=== PATIENT | female | born 1950 | race Caucasian/White ===

== ENCOUNTER 2016-08-31 08:13 | Day surgery (SDC) | payer BC, MEDICARE ==
[~2016-08-31 08:13] MED LIST: Midazolam 1 MG/ML 2 ML SDV ONE; Ondansetron 4 MG/2 ML SDV ONE; Propofol 200 MG/20 ML SDV ONE; Sodium Chloride 0.9% 10 ML Syringe FLUSH PRN; Sodium Chloride 0.9% 2.5 ML Syringe FLUSH PRN; fentaNYL 100 MCG/2 ML SDV ONE
--- NOTE | 2016-08-31 08:55 | PCM.PREANE ---
Preanesthetic Assessment - Anesthesia/Transfusion/Family Hx Anesthesia History: Prior Anesthesia Without Reaction Family History of Anesthesia Reaction: No Transfusion History: No Prior Transfusion(s) Intubation History: Unknown - Review of Systems General: No Symptoms Pulmonary: No Symptoms Cardiovascular: No Symptoms Gastrointestinal: No symptoms Neurological: No Symptoms Other: Reports: None - Physical Assessment Height: 1.69 m Weight: 84.368 kg ASA Class: 3 Mental Status: Alert & Oriented x3 Airway Class: Mallampati = 2 Dentition: Reports: Bostwick(s) (multiplr upper front) Thyro-Mental Finger Breadths: 3 Mouth Opening Finger Breadths: 2 ROM/Head Extension: Full Lungs: Clear to auscultation, Normal respiratory effort Cardiovascular: Regular Rate, Regular Rhythm, No Murmurs - Lab Values: Laboratory Last Values WBC 6.09 K/uL (4.0-11.0) 08/31/16 08:30 RBC 4.42 M/uL (4.30-5.90) 08/31/16 08:30 Hgb 12.8 g/dL (12.0-16.0) 08/31/16 08:30 Hct 39.5 % (36.0-46.0) 08/31/16 08:30 MCV 89.4 fL (80.0-98.0) 08/31/16 08:30 MCH 29.0 pg (27.0-32.0) 08/31/16 08:30 MCHC 32.4 g/dL (31.0-37.0) 08/31/16 08:30 RDW Std Deviation 43.8 fl (28.0-62.0) 08/31/16 08:30 RDW Coeff of Morro 13 % (11.0-15.0) 08/31/16 08:30 Plt Count 287 K/uL (150-400) 08/31/16 08:30 MPV 9.10 fL (7.40-12.00) 08/31/16 08:30 Nucleated RBC % 0.0 /100WBC 08/31/16 08:30 Nucleated RBCs # 0 K/uL 08/31/16 08:30 POC Glucose 136 mg/dL (60-110) H 08/31/16 08:39 - Allergies Allergies/Adverse Reactions: Allergies Allergy/AdvReac Type Severity Reaction Status Date / Time No Known Allergies Allergy Verified 05/24/14 09:30 - Blood Blood Available: No - Anesthesia Plan Pre-Op Medication Ordered: None - Acknowledgements Anesthesia Type Planned: General Anesthesia Pt an Appropriate Candidate for the Planned Anesthesia: Yes Alternatives and Risks of Anesthesia Discussed w Pt/Guardian: Yes Pt/Guardian Understands and Agrees with Anesthesia Plan: Yes PreAnesthesia Questionnaire HEENT History: Reports: None Cardiovascular History: Reports: High cholesterol Gastrointestinal History: Reports: None 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: Fibroids, Endocrine/Metabolic History: Reports: Diabetes, type II, Hypothyroidism, Osteopenia - Past Surgical History Head Surgeries/Procedures: Reports: None HEENT Surgical History: Reports: Tonsillectomy GI Surgical History: Reports: Cholecystectomy, Colonoscopy (x2) - SUBSTANCE USE Smoking Status *Q: Former Smoker Tobacco Use Within Last Twelve Months: No Days Per Week of Alcohol Use: 0 Number of Drinks Per Day: 0 Total Drinks Per Week: 0 Recreational Drug Use History: No - HOME MEDS Home Medications: Home Meds Calcium Carbonate/Vitamin D3 [Calcium 600 + Vit D 400] 1 tab PO DAILY 05/24/14 [ History] Cinnamon Bark [Cinnamon] 2 tab PO DAILY 05/24/14 [History] Levothyroxine Sodium [Synthroid] 125 mcg PO DAILY 05/24/14 [History] atorvaSTATin Calcium [Atorvastatin Calcium] 20 mg PO ASDIRECTED 05/24/14 [ History] metFORMIN HCl [Metformin HCl ER] 3 tab PO DAILY 05/24/14 [History] - CURRENT (IN HOUSE) MEDS Current Meds: Current Medications Sodium Chloride (Saline Flush) 10 ml FLUSH ASDIRECTED PRN PRN Reason: Keep Vein Open Sodium Chloride (Saline Flush) 2.5 ml FLUSH ASDIRECTED PRN PRN Reason: Keep Vein Open Discontinued Medications Fentanyl (Sublimaze) Confirm Administered Dose 100 mcg .ROUTE .STK-MED ONE Stop: 08/31/16 07:11 Midazolam HCl (Versed 1 Mg/Ml) Confirm Administered Dose 2 mg .ROUTE .STK-MED ONE Stop: 08/31/16 07:11 Ondansetron HCl (Zofran) Confirm Administered Dose 4 mg .ROUTE .STK-MED ONE Stop: 08/31/16 07:10 Propofol (Diprivan 20 Ml) Confirm Administered Dose 200 mg .ROUTE .STK-MED ONE Stop: 08/31/16 07:11
[2016-08-31] MEDS ORDERED: Lactated Ringers 1,000 ML IV SCH (09:00)
[2016-08-31] MEDS ORDERED: fentaNYL 100 MCG/2 ML SDV ONE (09:46)
[2016-08-31] MEDS ORDERED: Ketorolac 30 MG/ML SDV ONE (09:53)
--- NOTE | 2016-08-31 10:07 | PCM.OPNOTE ---
- General Post-Op/Procedure Note Date of Surgery/Procedure: 08/31/16 Operative Procedure(s): Operative hysteroscopy, polypectomy, curettage of endometrium Pre Op Diagnosis: Abnormal sonogram, endometrial polyp Post-Op Diagnosis: Same Anesthesia Technique: General LMA Primary Surgeon: Therese Dior Pathology: endometrial polyp and curretings Fluid Replacement, Intraop: 700 EBL in mLs: 15 Complications: None known Condition: Good Free Text/Narrative:: Dictation [id number]
--- NOTE | 2016-08-31 10:27 | PCM.POSTAN ---
POST ANESTHESIA ASSESSMENT - MENTAL STATUS Mental Status: alert, oriented - RESPIRATORY Respiratory Status: respiratory rate WNL, airway patent, O2 saturation stable - CARDIOVASCULAR CV Status: pulse rate WNL, blood pressure stable - GASTROINTESTINAL GI Status: no symptoms - PAIN Pain Score: 0 - POST OP HYDRATION Hydration Status: adequate & stable
--- NOTE | 2016-08-31 10:35 | PCM.PREANE ---
Preanesthetic Assessment - Anesthesia/Transfusion/Family Hx Anesthesia History: Prior Anesthesia Without Reaction Family History of Anesthesia Reaction: No Transfusion History: No Prior Transfusion(s) Intubation History: Unknown - Review of Systems Other: Reports: None - Physical Assessment NPO Status Date: 08/30/16 NPO Status Time: 23:00 O2 Sat by Pulse Oximetry: 92 Respiratory Rate: 12 Vital Signs: Last Vital Signs Temp 36.4 C 08/31/16 10:05 Pulse 88 08/31/16 10:31 Resp 12 08/31/16 10:31 BP 116/63 08/31/16 10:31 Pulse Ox 92 L 08/31/16 10:31 Height: 1.69 m Weight: 84.368 kg - Lab Values: Laboratory Last Values WBC 6.09 K/uL (4.0-11.0) 08/31/16 08:30 RBC 4.42 M/uL (4.30-5.90) 08/31/16 08:30 Hgb 12.8 g/dL (12.0-16.0) 08/31/16 08:30 Hct 39.5 % (36.0-46.0) 08/31/16 08:30 MCV 89.4 fL (80.0-98.0) 08/31/16 08:30 MCH 29.0 pg (27.0-32.0) 08/31/16 08:30 MCHC 32.4 g/dL (31.0-37.0) 08/31/16 08:30 RDW Std Deviation 43.8 fl (28.0-62.0) 08/31/16 08:30 RDW Coeff of Morro 13 % (11.0-15.0) 08/31/16 08:30 Plt Count 287 K/uL (150-400) 08/31/16 08:30 MPV 9.10 fL (7.40-12.00) 08/31/16 08:30 Nucleated RBC % 0.0 /100WBC 08/31/16 08:30 Nucleated RBCs # 0 K/uL 08/31/16 08:30 POC Glucose 136 mg/dL (60-110) H 08/31/16 08:39 - Allergies Allergies/Adverse Reactions: Allergies Allergy/AdvReac Type Severity Reaction Status Date / Time No Known Allergies Allergy Verified 05/24/14 09:30 - Blood Blood Available: No PreAnesthesia Questionnaire HEENT History: Reports: None Cardiovascular History: Reports: High cholesterol Gastrointestinal History: Reports: None 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: Fibroids, Endocrine/Metabolic History: Reports: Diabetes, type II, Hypothyroidism, Osteopenia - Past Surgical History Head Surgeries/Procedures: Reports: None HEENT Surgical History: Reports: Tonsillectomy GI Surgical History: Reports: Cholecystectomy, Colonoscopy (x2) - SUBSTANCE USE Smoking Status *Q: Former Smoker Tobacco Use Within Last Twelve Months: No Days Per Week of Alcohol Use: 0 Number of Drinks Per Day: 0 Total Drinks Per Week: 0 Recreational Drug Use History: No - HOME MEDS Home Medications: Home Meds Calcium Carbonate/Vitamin D3 [Calcium 600 + Vit D 400] 1 tab PO DAILY 05/24/14 [ History] Cinnamon Bark [Cinnamon] 2 tab PO DAILY 05/24/14 [History] Levothyroxine Sodium [Synthroid] 125 mcg PO DAILY 05/24/14 [History] atorvaSTATin Calcium [Atorvastatin Calcium] 20 mg PO ASDIRECTED 05/24/14 [ History] metFORMIN HCl [Metformin HCl ER] 3 tab PO DAILY 05/24/14 [History] - CURRENT (IN HOUSE) MEDS Current Meds: Current Medications Lactated Ringer's (Ringers, Lactated) 1,000 mls @ 125 mls/hr IV ASDIRECTED [facility] Last Admin: 08/31/16 08:50 Dose: 125 mls/hr Sodium Chloride (Saline Flush) 10 ml FLUSH ASDIRECTED PRN PRN Reason: Keep Vein Open Sodium Chloride (Saline Flush) 2.5 ml FLUSH ASDIRECTED PRN PRN Reason: Keep Vein Open Discontinued Medications Fentanyl (Sublimaze) Confirm Administered Dose 100 mcg .ROUTE .STK-MED ONE Stop: 08/31/16 07:11 Fentanyl (Sublimaze) Confirm Administered Dose 100 mcg .ROUTE .STK-MED ONE Stop: 08/31/16 09:47 Ketorolac Tromethamine (Toradol) Confirm Administered Dose 30 mg .ROUTE .STK- MED ONE Stop: 08/31/16 09:54 Midazolam HCl (Versed 1 Mg/Ml) Confirm Administered Dose 2 mg .ROUTE .STK-MED ONE Stop: 08/31/16 07:11 Ondansetron HCl (Zofran) Confirm Administered Dose 4 mg .ROUTE .STK-MED ONE Stop: 08/31/16 07:10 Propofol (Diprivan 20 Ml) Confirm Administered Dose 200 mg .ROUTE .STK-MED ONE Stop: 08/31/16 07:11
--- NOTE | 2016-08-31 11:18 | PCM48HPAN ---
Post Anesthesia Note - COMMENTS/OBSERVATIONS Free Text/Narrative:: no anesthesia problems
[2016-08-31 11:36] VITALS: BP 129/76
--- NOTE | 2016-08-31 19:55 | OR ---
SURGEON: Therese Dior M.D. DATE OF PROCEDURE: 08/31/2016 PREOPERATIVE DIAGNOSIS: Abnormal sonogram with endometrial polyp. POSTOPERATIVE DIAGNOSIS: Abnormal sonogram with endometrial polyp. PROCEDURE: Operative hysteroscopy, endometrial polypectomy, curettage of endometrium. ANESTHESIA: General and LMA. FLUIDS: 700 mL crystalloid. ESTIMATED BLOOD LOSS: 15 mL. FLUID DEFICIT: 230 mL normal saline. DISPOSITION: The patient to PACU, stable. PROCEDURE IN DETAIL: Juana is a 66-year-old postmenopausal female, who had an abnormal sonogram, which revealed a thickened endometrium. Sonohysterogram revealed a polypoid lesion with benign endometrial biopsy. At this time, the patient would like to undergo surgical resection of the polyp. Risks of procedure were discussed. Proper consent was obtained. The patient was taken to the operating room, where she underwent general LMA, was placed in modified dorsal lithotomy position, prepped and draped in the usual sterile fashion. The bladder was drained. Time-out was performed. Speculum was then introduced in the vagina. Anterior lip of cervix was grasped with an Allis clamp. Cervix was gently dilated to 5 mm. MyoSure scope was now introduced into the uterine cavity using normal saline as the distention media. The ostia were visualized. There was a midline fundal anterior polypoid lesion noted. Photograph taken. There were no other polyps or lesions noted within the lower uterine segment or endocervical canal. The MyoSure resectoscope was now gently introduced. The fundal polyp was able to be easily excised. The remainder of the endometrium was now gently shaved with the MyoSure device. All specimens sent to Pathology for further analysis. Photograph taken post resection. The MyoSure device was removed. The scope was then reintroduced. Hemostasis appears evident. Hysteroscope was now removed. The cervix was gently visualized and appears hemostatic. Sponge and instrument counts correct x2. The patient tolerated the procedure well. She will go to PACU in stable condition. Specimens to pathology. SRI / BLOSSOM /[id number]
== END 2016-08-31 11:34 | disposition home or self-care (01) ==
LOC: MW.SDS 08:13
PROVIDERS: ATTEND Obstetrics & Gynecology
PROC: 0UB98ZZ Excision of Uterus, Via Natural or Artificial Opening Endoscopic (ICD-10-PCS; principal; 2016-08-31)
PROC: 0UDB8ZZ Extraction of Endometrium, Via Natural or Artificial Opening Endoscopic (ICD-10-PCS; 2016-08-31)
DX: N84.0 Polyp of corpus uteri (principal); E03.9 Hypothyroidism, unspecified; E11.9 Type 2 diabetes mellitus without complications; E78.00 Pure hypercholesterolemia, unspecified; Z87.891 Personal history of nicotine dependence; Z90.49 Acquired absence of other specified parts of digestive tract; Z90.89 Acquired absence of other organs; Z98.890 Other specified postprocedural states; Z79.84 Long term (current) use of oral hypoglycemic drugs; Z79.899 Other long term (current) drug therapy
CPT/HCPCS: 36415; 58558; 82962; 85027; 88305; J1885; J2250; J2405; J3010; J7120; 00952; J2704

== ENCOUNTER 2020-06-21 07:24 | Day surgery (SDC) | payer BC, MEDICARE ==
[~2020-06-21 07:24] MED LIST changes: +Lactated Ringers 1,000 ML IV SCH; +Lidocaine 2% 5 ML SDV ONE; -Midazolam 1 MG/ML 2 ML SDV ONE; -Ondansetron 4 MG/2 ML SDV ONE; -Sodium Chloride 0.9% 10 ML Syringe FLUSH PRN; -Sodium Chloride 0.9% 2.5 ML Syringe FLUSH PRN; -fentaNYL 100 MCG/2 ML SDV ONE
--- NOTE | 2020-06-21 08:04 | PCM.PREANE ---
Preanesthetic Assessment - Anesthesia/Transfusion/Family Hx Anesthesia History: Prior Anesthesia Without Reaction Family History of Anesthesia Reaction: No Transfusion History: No Prior Transfusion(s) Intubation History: Unknown - Review of Systems General: No Symptoms Pulmonary: No Symptoms Cardiovascular: No Symptoms Gastrointestinal: No Symptoms Neurological: No Symptoms Other: Reports: None - Physical Assessment NPO Status Date: 06/20/20 Height: 5 ft 7 in Weight: 83.915 kg ASA Class: 2 Mental Status: Alert & Oriented x3 Airway Class: Mallampati = 2 Dentition: Reports: Normal Dentition ROM/Head Extension: Full Lungs: Clear to Auscultation, Normal Respiratory Effort Cardiovascular: Regular Rate, Regular Rhythm - Allergies Allergies/Adverse Reactions: Allergies Allergy/AdvReac Type Severity Reaction Status Date / Time No Known Allergies Allergy Verified 06/17/20 10:08 - Blood Blood Available: No - Anesthesia Plan Pre-Op Medication Ordered: None - Acknowledgements Anesthesia Type Planned: General Anesthesia (tiva) Pt an Appropriate Candidate for the Planned Anesthesia: Yes Alternatives and Risks of Anesthesia Discussed w Pt/Guardian: Yes Pt/Guardian Understands and Agrees with Anesthesia Plan: Yes PreAnesthesia Questionnaire HEENT History: Reports: Hard of Hearing Other HEENT History: alysia hearing aids ("probably won't wear them that day" Cardiovascular History: Reports: High Cholesterol Respiratory History: Reports: None Gastrointestinal History: Reports: None, Colon Polyp Genitourinary History: Reports: None 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: Fibroids, Musculoskeletal History: Reports: None Neurological History: Reports: None Psychiatric History: Reports: None Endocrine/Metabolic History: Reports: Diabetes, Type II, Hypothyroidism, Osteopenia Hematologic History: Reports: None Immunologic History: Reports: None Oncologic (Cancer) History: Reports: None Dermatologic History: Reports: None - Past Surgical History Head Surgeries/Procedures: Reports: None HEENT Surgical History: Reports: Tonsillectomy Cardiovascular Surgical History: Reports: None Respiratory Surgical History: Reports: None GI Surgical History: Reports: Cholecystectomy, Colonoscopy Female Surgical History: Reports: Other (See Below) Other Female Surgeries/Procedures: hysteroscopy & D&C Endocrine Surgical History: Reports: None Neurological Surgical History: Reports: None Musculoskeletal Surgical History: Reports: None Oncologic Surgical History: Reports: None Dermatological Surgical History: Reports: None - SUBSTANCE USE Tobacco Use Status *Q: Former Tobacco User Tobacco Use Within Last Twelve Months: No - HOME MEDS Home Medications: Home Meds Calcium Carbonate/Vitamin D3 [Calcium 600 + Vit D 400] 1 tab PO DAILY 05/24/14 [History] Cinnamon Bark [Cinnamon] 2 tab PO DAILY 05/24/14 [History] Levothyroxine Sodium [Synthroid] 125 mcg PO DAILY 05/24/14 [History] atorvaSTATin Calcium [Atorvastatin Calcium] 20 mg PO ASDIRECTED 05/24/14 [History] metFORMIN HCl [Metformin HCl ER] 4 tab PO ACDINNER 05/24/14 [History] lisinopriL [Lisinopril] 5 mg PO DAILY 06/17/20 [History] - CURRENT (IN HOUSE) MEDS Current Meds: Current Medications Lactated Ringer's (Ringers, Lactated) 1,000 mls @ 125 mls/hr IV ASDIRECTED TIM Discontinued Medications Lidocaine (Xylocaine-Mpf 2%) Confirm Administered Dose 5 ml .ROUTE .STK-MED ONE Stop: 06/21/20 07:24 Propofol (Diprivan 20 Ml) Confirm Administered Dose 400 mg .ROUTE .STK-MED ONE Stop: 06/21/20 07:24
--- NOTE | 2020-06-21 09:18 | PCM.OPNOTE ---
- General Post-Op/Procedure Note Date of Surgery/Procedure: 06/21/20 Operative Procedure(s): Colonoscopy Pre Op Diagnosis: Personal history of tubulovillous adenoma. History of diverticulosis. Post-Op Diagnosis: Mild sigmoid diverticulosis Anesthesia Technique: MAC (ASA II) Primary Surgeon: Guillermo Hess Wellness Consultant: Karol Dominguez Condition: Good Free Text/Narrative:: DICTATION [id number] CPT CODE [id number]
[2020-06-21] MEDS ORDERED: Lactated Ringers 1,000 ML IV SCH (09:30)
[2020-06-21 10:35] VITALS: BP 130/73; PULSE 70
--- NOTE | 2020-06-21 11:39 | OR ---
SURGEON: Guillermo Hess M.D. DATE OF PROCEDURE: 06/21/2020 OPERATION PERFORMED: Colonoscopy. PRIMARY SURGEON: Guillermo Hess M.D. [facility] OR DEPARTMENT CHIEF LIBRARIAN: SHON Meléndez Student. ANESTHESIA: MAC. ASA CLASSIFICATION: II. PREOPERATIVE DIAGNOSIS: Personal history of colon polyps. POSTOPERATIVE DIAGNOSES: 1. No evidence of neoplasia. 2. Mild sigmoid diverticulosis. DESCRIPTION OF PROCEDURE: The patient was taken to the endoscopy room, positioned on the endoscopy table in the left lateral decubitus position. Time-out was called for appropriate identification of the patient and procedure. Monitored anesthesia care was provided. The colonoscope was inserted into the rectum and advanced with minimal difficulty to the cecum. The cecum was identified by internal landmarks and external pressure. The colonoscope was retroflexed to visualize the ascending colon from below, then straightened, and slowly withdrawn. The cecum, ascending colon, hepatic flexure, transverse colon, splenic flexure, and descending colon showed no tumors, polyps, diverticula, or angiodysplastic changes. A few small scattered diverticula were noted in the sigmoid colon. No stricture, spasm, or bleeding was noted. No polyps were encountered. The colonoscope was withdrawn to the rectum and retroflexed to visualize the anal orifice from above. No tumors, polyps, or acute hemorrhoidal changes were noted. The colonoscope was then straightened, the rectum aspirated, and the colonoscope removed. The patient tolerated the procedure well and was taken to recovery room in stable condition. LIVE / BLOSSOM /[id number]
--- NOTE | 2020-06-21 12:12 | PCM.POSTAN ---
POST ANESTHESIA ASSESSMENT - MENTAL STATUS Mental Status: Alert, Oriented - VITAL SIGNS Vital Signs: Last Vital Signs Temp 95.9 F L 06/21/20 07:50 Pulse 70 06/21/20 09:30 Resp 16 06/21/20 09:30 BP 130/73 06/21/20 09:30 Pulse Ox 96 06/21/20 09:30 - RESPIRATORY Respiratory Status: Respiratory Rate WNL, Airway Patent, O2 Saturation Stable - CARDIOVASCULAR CV Status: Pulse Rate WNL, Blood Pressure Stable - GASTROINTESTINAL GI Status: No Symptoms - POST OP HYDRATION Hydration Status: Adequate & Stable
--- NOTE | 2020-06-21 12:14 | PCM48HPAN ---
Post Anesthesia Note - EVALUATION WITHIN 48HRS OF ANESTHETIC Vital Signs in Normal Range: Yes Patient Participated in Evaluation: Yes Respiratory Function Stable: Yes Airway Patent: Yes Cardiovascular Function Stable: Yes Hydration Status Stable: Yes Pain Control Satisfactory: Yes Nausea and Vomiting Control Satisfactory: Yes Mental Status Recovered: Yes Vital Signs: Last Vital Signs Temp 95.9 F L 06/21/20 07:50 Pulse 70 06/21/20 09:30 Resp 16 06/21/20 09:30 BP 130/73 06/21/20 09:30 Pulse Ox 96 06/21/20 09:30
== END 2020-06-21 10:00 | disposition home or self-care (01) ==
LOC: MW.SDS 07:24
PROVIDERS: ATTEND Surgery
DX: Z12.11 Encounter for screening for malignant neoplasm of colon (principal); K57.30 Diverticulosis of large intestine without perforation or abscess without bleeding; E03.9 Hypothyroidism, unspecified; E11.9 Type 2 diabetes mellitus without complications; Z79.84 Long term (current) use of oral hypoglycemic drugs; Z79.890 Hormone replacement therapy; Z79.899 Other long term (current) drug therapy; Z86.010 Personal history of colon polyps; Z87.891 Personal history of nicotine dependence; Z98.890 Other specified postprocedural states
CPT/HCPCS: 45378; J2704; J7120

== ENCOUNTER 2021-04-04 21:25 | Inpatient (IN) | payer MEDICARE, BC ==
[2021-04-04] MEDS ORDERED: Sodium Chloride 0.9% 2.5 ML Syringe FLUSH PRN (21:39)
[2021-04-04] MEDS ORDERED: Sodium Chloride 0.9% 10 ML Syringe FLUSH PRN (21:39)
--- NOTE | 2021-04-04 21:49 | EDM.PDOC ---
ED HPI GENERAL MEDICAL PROBLEM - General Chief Complaint: Respiratory Problem Stated Complaint: COVID POS, WEAKNESS Time Seen by Provider: 04/04/21 21:40 Source of Information: Reports: Patient History Limitations: Reports: No Limitations - History of Present Illness INITIAL COMMENTS - FREE TEXT/NARRATIVE: Patient is a 51-year-old female presents today for shortness of breath. Patient tested positive Covid a few days ago and she received antibiotic treatment today. To have a chronic cough nonproductive. She is satting 94% on room air. Denies any chest pain but did have a fever today which prompted her to come in. She still been tolerating p.o. at home has no other complaints. - Related Data Allergies Allergy/AdvReac Type Severity Reaction Status Date / Time No Known Allergies Allergy Verified 04/04/21 21:50 Home Meds: Home Meds Calcium Carbonate/Vitamin D3 [Calcium 600 + Vit D 400] 1 tab PO DAILY 05/24/14 [History] Cinnamon Bark [Cinnamon] 2 tab PO DAILY 05/24/14 [History] Levothyroxine Sodium [Synthroid] 125 mcg PO DAILY 05/24/14 [History] atorvaSTATin Calcium [Atorvastatin Calcium] 20 mg PO ASDIRECTED 05/24/14 [History] metFORMIN HCl [Metformin HCl ER] 4 tab PO ACDINNER 05/24/14 [History] lisinopriL [Lisinopril] 5 mg PO DAILY 06/17/20 [History] Past Medical History HEENT History: Reports: Hard of Hearing Other HEENT History: alysia hearing aids ("probably won't wear them that day" Cardiovascular History: Reports: High Cholesterol Respiratory History: Reports: None Gastrointestinal History: Reports: None, Colon Polyp Genitourinary History: Reports: None 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: Fibroids, Musculoskeletal History: Reports: None Neurological History: Reports: None Psychiatric History: Reports: None Endocrine/Metabolic History: Reports: Diabetes, Type II, Hypothyroidism, Osteopenia Hematologic History: Reports: None Immunologic History: Reports: None Oncologic (Cancer) History: Reports: None Dermatologic History: Reports: None - Past Surgical History Head Surgeries/Procedures: Reports: None HEENT Surgical History: Reports: Tonsillectomy Cardiovascular Surgical History: Reports: None Respiratory Surgical History: Reports: None GI Surgical History: Reports: Cholecystectomy, Colonoscopy Female Surgical History: Reports: Other (See Below) Other Female Surgeries/Procedures: hysteroscopy & D&C Endocrine Surgical History: Reports: None Neurological Surgical History: Reports: None Musculoskeletal Surgical History: Reports: None Oncologic Surgical History: Reports: None Dermatological Surgical History: Reports: None Social & Family History - Caffeine Use Caffeine Use: Reports: Coffee, Tea ED ROS GENERAL - Review of Systems Review Of Systems: See Below Constitutional: Reports: No Symptoms HEENT: Reports: No Symptoms Respiratory: Reports: Shortness of Breath, Cough Cardiovascular: Reports: No Symptoms Endocrine: Reports: No Symptoms GI/Abdominal: Reports: No Symptoms : Reports: No Symptoms Musculoskeletal: Reports: No Symptoms Skin: Reports: No Symptoms Neurological: Reports: No Symptoms Psychiatric: Reports: No Symptoms Hematologic/Lymphatic: Reports: No Symptoms Immunologic: Reports: No Symptoms ED EXAM, GENERAL - Physical Exam Exam: See Below Exam Limited By: No Limitations General Appearance: Alert, WD/WN, No Apparent Distress Eye Exam: Bilateral Eye: EOMI, PERRL Nose: Normal Inspection Throat/Mouth: Normal Inspection Head: Atraumatic, Normocephalic Neck: Normal Inspection Respiratory/Chest: No Respiratory Distress, Lungs Clear, Normal Breath Sounds Cardiovascular: Normal Peripheral Pulses, Regular Rate, Rhythm GI/Abdominal: Normal Bowel Sounds, Soft, Non-Tender Extremities: Normal Inspection, Normal Range of Motion Neurological: Alert, Oriented, Normal Cognition, Normal Gait #1 Interpretation EKG Date: 04/04/21 Time: 21:42 Rhythm: Other (sinus tachy) Rate (Beats/Min): 121 ST-T: Normal Course - Vital Signs Last Recorded V/S: Last Vital Signs Temp 99.7 F 04/04/21 22:07 Pulse 119 H 04/04/21 21:46 Resp 22 H 04/04/21 21:46 BP 156/85 H 04/04/21 21:46 Pulse Ox 93 L 04/04/21 21:46 - Orders/Labs/Meds Orders: Active Orders 24 hr Category Date Time Status Patient Status [ADT] Routine ADT 04/05/21 00:42 Ordered Sodium Chloride 0.9% [Saline Flush] Med 04/04/21 21:39 Active 10 ml FLUSH ASDIRECTED PRN Sodium Chloride 0.9% [Saline Flush] Med 04/04/21 21:39 Active 2.5 ml FLUSH ASDIRECTED PRN Saline Lock Insert [OM.PC] Stat Ot 04/04/21 21:39 Ordered Medication Orders Sodium Chloride (Sodium Chloride 0.9% 10 Ml Syringe) 10 ml FLUSH ASDIRECTED PRN PRN Reason: Keep Vein Open Last Admin: 04/04/21 22:08 Dose: 10 ml Documented by: LUCÍA Sodium Chloride (Sodium Chloride 0.9% 2.5 Ml Syringe) 2.5 ml FLUSH ASDIRECTED PRN PRN Reason: Keep Vein Open Last Admin: 04/04/21 22:08 Dose: 2.5 ml Documented by: LUCÍA Labs: Laboratory Tests 04/04/21 04/04/21 Range/Units 22:09 22:09 WBC 5.44 (4.0-11.0) K/uL RBC 4.51 (4.30-5.90) M/uL Hgb 13.2 (12.0-16.0) g/dL Hct 38.4 (36.0-46.0) % MCV 85.1 (80.0-98.0) fL MCH 29.3 (27.0-32.0) pg MCHC 34.4 (31.0-37.0) g/dL RDW Std Deviation 40.8 (28.0-62.0) fl RDW Coeff of [place]ro 13 (11.0-15.0) % Plt Count 210 (150-400) K/uL MPV 9.10 (7.40-12.00) fL Neut % (Auto) 83.9 H (48.0-80.0) % Lymph % (Auto) 11.9 L (16.0-40.0) % [place] % (Auto) 4.2 (0.0-15.0) % Eos % (Auto) 0.0 (0.0-7.0) % Baso % (Auto) 0.0 (0.0-1.5) % Neut # (Auto) 4.6 (1.4-5.7) K/uL Lymph # (Auto) 0.7 (0.6-2.4) K/uL [place] # (Auto) 0.2 (0.0-0.8) K/uL Eos # (Auto) 0.0 (0.0-0.7) K/uL Baso # (Auto) 0.0 (0.0-0.1) K/uL Nucleated RBC % 0.0 /100WBC Nucleated RBCs # 0 K/uL Sodium 128 L (136-145) mmol/L Potassium 4.0 (3.5-5.1) mmol/L Chloride 92 L (98-107) mmol/L Carbon Dioxide 25.7 (21.0-32.0) mmol/L BUN 13 (7.0-18.0) mg/dL Creatinine 1.0 (0.6-1.0) mg/dL Est Cr Clr Drug Dosing 52.81 mL/min Estimated GFR (MDRD) 54.8 ml/min Glucose 201 H (74-106) mg/dL Calcium 8.4 L (8.5-10.1) mg/dL Total Bilirubin 0.4 (0.2-1.0) mg/dL AST 31 (15-37) IU/L ALT 40 (14-63) IU/L Alkaline Phosphatase 79 (46-116) U/L Total Protein 7.5 (6.4-8.2) g/dL Albumin 3.4 (3.4-5.0) g/dL Globulin 4.1 H (2.6-4.0) g/dL Albumin/Globulin Ratio 0.8 L (0.9-1.6) Meds: Medications Generic Name Dose Route Start Last Admin Trade Name Cierra PRN Reason Stop Dose Admin Sodium Chloride 10 ml 04/04/21 21:39 04/04/21 22:08 Sodium Chloride 0.9% 10 Ml Syringe FLUSH 10 ml ASDIRECTED PRN Administration Keep Vein Open Sodium Chloride 2.5 ml 04/04/21 21:39 04/04/21 22:08 Sodium Chloride 0.9% 2.5 Ml Syringe FLUSH 2.5 ml ASDIRECTED PRN Administration Keep Vein Open Discontinued Medications Generic Name Dose Route Start Last Admin Trade Name Freq PRN Reason Stop Dose Admin Acetaminophen 650 mg 04/04/21 21:56 04/04/21 22:07 Acetaminophen 325 Mg Tab PO 04/04/21 21:57 650 mg NOW ONE Administration Dexamethasone 10 mg 04/05/21 00:41 Dexamethasone 10 Mg/Ml Sdv IVPUSH 04/05/21 00:42 ONETIME ONE Sodium Chloride 1,000 mls @ 1,000 mls/hr 04/04/21 21:56 04/04/21 22:08 Normal Saline IV 04/04/21 22:55 1,000 mls/hr .Bolus ONE Administration Remdesivir 200 mg/ Sodium 250 mls @ 250 mls/hr 04/05/21 00:41 Chloride IV 04/05/21 00:42 ONETIME ONE Iopamidol 100 ml 04/04/21 23:07 04/04/21 23:41 Iopamidol 755 Mg/Ml 500 Ml Multipack Bottle IVPUSH 04/04/21 23:08 100 ml ONETIME ONE Administration - Re-Assessments/Exams Free Text/Narrative Re-Assessment/Exam: 04/05/21 00:[address] PE is negative patient is hypoxic down to the 80s while lying down will admit patient for further care. Departure - Departure Time of Disposition: 00:43 Disposition: Home, Self-Care 01 Condition: Good Clinical Impression: Hypoxia, Tachycardia - Discharge Information *PRESCRIPTION DRUG MONITORING PROGRAM REVIEWED*: Not Applicable *COPY OF PRESCRIPTION DRUG MONITORING REPORT IN PATIENT FATOUMATA: Not Applicable Forms: ED Department Discharge Sepsis Event Note (ED) - Focused Exam Vital Signs: Vital Signs Temp Temp Pulse Resp BP Pulse Ox 04/04/21 22:07 99.7 F 04/04/21 21:46 99.7 F 119 H 22 H 156/85 H 93 L - My Orders Last 24 Hours: My Active Orders 04/05/21 00:42 Patient Status [ADT] Routine - Assessment/Plan Last 24 Hours: My Active Orders 04/05/21 00:42 Patient Status [ADT] Routine Plan: Patient is a 71-year-old female who presents today for increased shortness of breath. Patient tested positive for Covid and received antibiotic treatment today but states she still feels short of breath in spite of fever. Will obtain x-ray labs and reassess.
[2021-04-04] MEDS ORDERED: Sodium Chloride 0.9% 1,000 ML IV ONE (21:56)
[2021-04-04] MEDS ORDERED: Acetaminophen 325 MG Tab PO ONE (21:56)
--- NOTE | 2021-04-04 22:29 | CR ---
HISTORY: Pain and shortness of breath. COMPARISON: None available FINDINGS: A portable erect AP view of the chest was obtained at 21 39 hours. The lungs are clear. No focal or diffuse infiltrates are present. The heart is normal in size. The mediastinum is normal in appearance. The osseous structures are normal in appearance for the patient`s age. IMPRESSION: Normal portable chest single view. Dictated by Kirill Zamora MD @ 04/04/2021 10:26:24 PM (Electronically Signed)
[2021-04-04 22:43] LABS: CARBON DIOXIDE,CO2 25.7 mmol/L (21.0-32.0)
[2021-04-04] MEDS ORDERED: Iopamidol 755 MG/ML 500 ML Multipack Bottle IVPUSH ONE (23:07)
--- NOTE | 2021-04-05 00:17 | CT ---
Indication: Tachycardia. COVID. Hypoxia. Technique: Multiple contiguous axial images were obtained from the thoracic inlet through the upper abdomen after the intravenous administration of 100 cc Isovue 370. Please note that all CT scans at this facility use dose modulation, iterative reconstruction, and/or weight-based dosing when appropriate to reduce radiation dose to as low as reasonably achievable. Comparison: None Findings: This examination is tailored for the evaluation of the pulmonary arteries. The aorta is normal in caliber. There is no evidence of aortic dissection. Reactive mediastinal and hilar lymphadenopathy is identified. The heart is normal in size. No pericardial effusion is identified. A small hiatal hernia is identified. Diffuse fatty infiltration of the liver is identified. The visualized portions of the liver, spleen, pancreas, adrenals, and kidneys are normal. No intrahepatic biliary ductal dilatation is identified. No hydronephrosis is identified. Postsurgical changes of the cholecystectomy are identified. Moderate patchy bilateral ground-glass opacities are identified, greatest in the lower lobes. This is most consistent with COVID. No pleural effusion or pneumothorax is identified. Impression: Findings most consistent with COVID. No evidence of pulmonary embolism. Please note that all CT scans at this facility use dose modulation, iterative reconstruction, and/or weight-based dosing when appropriate to reduce radiation dose to as low as reasonably achievable. Dictated by Tonya Torrez MD @ 04/05/2021 12:15:19 AM (Electronically Signed)
[2021-04-05] MEDS ORDERED: Dexamethasone 10 MG/ML SDV IVPUSH ONE (00:41)
[2021-04-05] MEDS ORDERED: REMDESIVIR 200 MG in Sodium Chloride 0.9% 250 ML IV ONE (00:41)
[2021-04-05] MEDS ORDERED: Acetaminophen 325 MG Tab PO PRN (04:21)
[2021-04-05] MEDS ORDERED: Glucagon,Human Recombinant 1 MG Vial IM PRN (04:24)
[2021-04-05] MEDS ORDERED: 50% Dextrose in Water 50 ML Syringe IVPUSH PRN (04:24)
[2021-04-05] MEDS: Insulin Aspart 100 Units/ML 3 ML Pen SUBCUT SCH ×3 (08:08→17:02)
--- NOTE | 2021-04-05 13:07 | PCM.HP.2 ---
H&P History of Present Illness - General Date of Service: 04/05/21 Admit Problem/Dx: Admission Diagnosis/Problem Admission Diagnosis/Problem Hypoxia - History of Present Illness Initial Comments - Free Text/Narative: 71 yo female who presents to the ED with ten day history of cough, and shortness of breath. Patient tested positive for COVID on Wednesday. She received monoclonal antibodies yesterday. LAter that night she became increasingly short of breath and was seen in the ED. She was notted to be satting 80% on room air after her CT scan was perfromed. Her CT scan was negative for PE but did show ground glass opacities. - Related Data Allergies/Adverse Reactions: Allergies Allergy/AdvReac Type Severity Reaction Status Date / Time No Known Allergies Allergy Verified 04/05/21 03:48 Home Medications: Home Meds Calcium Carbonate/Vitamin D3 [Calcium 600 + Vit D 400] 1 tab PO DAILY 05/24/14 [History] Cinnamon Bark [Cinnamon] 2 tab PO DAILY 05/24/14 [History] Levothyroxine Sodium [Synthroid] 125 mcg PO DAILY 05/24/14 [History] metFORMIN HCl [Metformin HCl ER] 4 tab PO ACDINNER 05/24/14 [History] lisinopriL [Lisinopril] 5 mg PO DAILY 06/17/20 [History] Past Medical History HEENT History: Reports: Hard of Hearing Other HEENT History: alysia hearing aids ("probably won't wear them that day" Cardiovascular History: Reports: High Cholesterol Respiratory History: Reports: None Gastrointestinal History: Reports: None, Colon Polyp Genitourinary History: Reports: None 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, Musculoskeletal History: Reports: None Neurological History: Reports: None Psychiatric History: Reports: None Endocrine/Metabolic History: Reports: Diabetes, Type II, Hypothyroidism, Osteopenia Hematologic History: Reports: None Immunologic History: Reports: None Oncologic (Cancer) History: Reports: None Dermatologic History: Reports: None - Infectious Disease History Infectious Disease History: Reports: Shingles - Past Surgical History Head Surgeries/Procedures: Reports: None HEENT Surgical History: Reports: Tonsillectomy Cardiovascular Surgical History: Reports: None Respiratory Surgical History: Reports: None GI Surgical History: Reports: Cholecystectomy, Colonoscopy Female Surgical History: Reports: Other (See Below) Other Female Surgeries/Procedures: hysteroscopy & D&C Endocrine Surgical History: Reports: None Neurological Surgical History: Reports: None Musculoskeletal Surgical History: Reports: None Oncologic Surgical History: Reports: None Dermatological Surgical History: Reports: None Social & Family History - Family History Cardiac: Reports: CAD, Heart Failure, Hypertension, PR Respiratory: Reports: Asthma : Reports: None OBGYN: Reports: None Musculoskeletal: Reports: None Neurological: Reports: None Hematologic: Reports: None Oncologic: Reports: None - Tobacco Use Tobacco Use Status *Q: Never Tobacco User Second Hand Smoke Exposure: No - Caffeine Use Caffeine Use: Reports: Coffee - Recreational Drug Use Recreational Drug Use: No H&P Review of Systems - Review of Systems: Review Of Systems: Comprehensive ROS is negative, except as noted in HPI. Exam - Exam Exam: See Below - Vital Signs Vital Signs: Last Vital Signs Temp 36.3 C 04/05/21 11:34 Pulse 91 04/05/21 11:34 Resp 18 04/05/21 11:34 BP 143/75 H 04/05/21 11:34 Pulse Ox 91 L 04/05/21 11:34 Weight: 76.158 kg - Exam General: Alert, Oriented HEENT: Mucosa Moist & Rex Lungs: Clear to Auscultation, Normal Respiratory Effort Cardiovascular: Regular Rate, Regular Rhythm GI/Abdominal Exam: Normal Bowel Sounds, Soft, Non-Tender Extremities: Non-Tender, No Pedal Edema Skin: Warm, Dry, Intact - Patient Data Lab Results Last 24 hrs: Laboratory Results - last 24 hr 04/04/21 04/04/21 04/05/21 Range/Units 22:09 22:09 00:51 WBC 5.44 (4.0-11.0) K/uL RBC 4.51 (4.30-5.90) M/uL Hgb 13.2 (12.0-16.0) g/dL Hct 38.4 (36.0-46.0) % MCV 85.1 (80.0-98.0) fL MCH 29.3 (27.0-32.0) pg MCHC 34.4 (31.0-37.0) g/dL RDW Std Deviation 40.8 (28.0-62.0) fl RDW Coeff of Morro 13 (11.0-15.0) % Plt Count 210 (150-400) K/uL MPV 9.10 (7.40-12.00) fL Neut % (Auto) 83.9 H (48.0-80.0) % Lymph % (Auto) 11.9 L (16.0-40.0) % [place] % (Auto) 4.2 (0.0-15.0) % Eos % (Auto) 0.0 (0.0-7.0) % Baso % (Auto) 0.0 (0.0-1.5) % Neut # (Auto) 4.6 (1.4-5.7) K/uL Lymph # (Auto) 0.7 (0.6-2.4) K/uL [place] # (Auto) 0.2 (0.0-0.8) K/uL Eos # (Auto) 0.0 (0.0-0.7) K/uL Baso # (Auto) 0.0 (0.0-0.1) K/uL Nucleated RBC % 0.0 /100WBC Nucleated RBCs # 0 K/uL Sodium 128 L (136-145) mmol/L Potassium 4.0 (3.5-5.1) mmol/L Chloride 92 L (98-107) mmol/L Carbon Dioxide 25.7 (21.0-32.0) mmol/L BUN 13 (7.0-18.0) mg/dL Creatinine 1.0 (0.6-1.0) mg/dL Est Cr Clr Drug Dosing 52.81 mL/min Estimated GFR (MDRD) 54.8 ml/min Glucose 201 H (74-106) mg/dL POC Glucose (70-99) mg/dL Calcium 8.4 L (8.5-10.1) mg/dL Total Bilirubin 0.4 (0.2-1.0) mg/dL AST 31 (15-37) IU/L ALT 40 (14-63) IU/L Alkaline Phosphatase 79 (46-116) U/L Total Protein 7.5 (6.4-8.2) g/dL Albumin 3.4 (3.4-5.0) g/dL Globulin 4.1 H (2.6-4.0) g/dL Albumin/Globulin Ratio 0.8 L (0.9-1.6) SARS-CoV-2 RNA (GILMA) POSITIVE H (NEGATIVE) 04/05/21 04/05/21 04/05/21 Range/Units 03:43 06:52 11:30 WBC (4.0-11.0) K/uL RBC (4.30-5.90) M/uL Hgb (12.0-16.0) g/dL Hct (36.0-46.0) % MCV (80.0-98.0) fL MCH (27.0-32.0) pg MCHC (31.0-37.0) g/dL RDW Std Deviation (28.0-62.0) fl RDW Coeff of [place]ro (11.0-15.0) % Plt Count (150-400) K/uL MPV (7.40-12.00) fL Neut % (Auto) (48.0-80.0) % Lymph % (Auto) (16.0-40.0) % [place] % (Auto) (0.0-15.0) % Eos % (Auto) (0.0-7.0) % Baso % (Auto) (0.0-1.5) % Neut # (Auto) (1.4-5.7) K/uL Lymph # (Auto) (0.6-2.4) K/uL [place] # (Auto) (0.0-0.8) K/uL Eos # (Auto) (0.0-0.7) K/uL Baso # (Auto) (0.0-0.1) K/uL Nucleated RBC % /100WBC Nucleated RBCs # K/uL Sodium (136-145) mmol/L Potassium (3.5-5.1) mmol/L Chloride (98-107) mmol/L Carbon Dioxide (21.0-32.0) mmol/L BUN (7.0-18.0) mg/dL Creatinine (0.6-1.0) mg/dL Est Cr Clr Drug Dosing mL/min Estimated GFR (MDRD) ml/min Glucose (74-106) mg/dL POC Glucose 279 H 339 H 253 H (70-99) mg/dL Calcium (8.5-10.1) mg/dL Total Bilirubin (0.2-1.0) mg/dL AST (15-37) IU/L ALT (14-63) IU/L Alkaline Phosphatase (46-116) U/L Total Protein (6.4-8.2) g/dL Albumin (3.4-5.0) g/dL Globulin (2.6-4.0) g/dL Albumin/Globulin Ratio (0.9-1.6) SARS-CoV-2 RNA (GILMA) (NEGATIVE) Result Diagrams: 04/04/21 22:09 04/04/21 22:09 Sepsis Event Note - Evaluation Sepsis Screening Result: No Definite Risk - Focused Exam Vital Signs: Vital Signs Temp Pulse Resp BP BP Pulse Ox 04/05/21 11:34 36.3 C 91 18 143/75 H 91 L 04/05/21 08:04 36.2 C 89 16 117/64 93 L 04/05/21 04:00 36.5 C 96 18 133/68 93 L 04/05/21 03:00 36.5 C 95 18 133/64 92 L 04/05/21 02:00 36.5 C 95 18 133/64 92 L - Problem List (1) COVID-19 SNOMED Code(s): 860121093 ICD Code: U07.1 - COVID-19 Status: Acute Current Visit: Yes Problem List Initiated/Reviewed/Updated: Yes Orders Last 24hrs: Active Orders 24 hr Category Date Time Status Patient Status [ADT] Routine ADT 04/05/21 00:42 Active Antiembolic Devices [RC] PER UNIT ROUTINE Care 04/05/21 12:57 Ordered Oxygen Therapy [RC] PRN Care 04/05/21 12:56 Ordered RT Post Treatment Assessment [RC] Click to Edit Care 04/05/21 13:00 Ordered RT Pre-Treatment Assessment [RC] Click to Edit Care 04/05/21 13:00 Ordered Telemetry Monitoring [Cardiac Monitoring] [RC] Q8H Care 04/05/21 02:43 Active Up ad Yasmin [RC] ASDIRECTED Care 04/05/21 12:56 Ordered VTE/DVT Education [RC] PER UNIT ROUTINE Care 04/05/21 12:56 Ordered Vital Signs [RC] Q4H Care 04/05/21 12:56 Ordered [place] [employer] Diet [DIET] Diet 04/05/21 Breakfast Active CBC WITH AUTO DIFF [HEME] AM Lab 04/06/21 05:11 Ordered CBC WITH AUTO DIFF [HEME] AM Lab 04/07/21 05:11 Ordered CBC WITH AUTO DIFF [HEME] AM Lab 04/08/21 05:11 Ordered CBC WITH AUTO DIFF [HEME] AM Lab 04/09/21 05:11 Ordered COMPREHENSIVE METABOLIC PN,CMP [CHEM] AM Lab 04/06/21 05:11 Ordered COMPREHENSIVE METABOLIC PN,CMP [CHEM] AM Lab 04/07/21 05:11 Ordered COMPREHENSIVE METABOLIC PN,CMP [CHEM] AM Lab 04/08/21 05:11 Ordered COMPREHENSIVE METABOLIC PN,CMP [CHEM] AM Lab 04/09/21 05:11 Ordered Acetaminophen [TylenoL] Med 04/05/21 04:21 Active 650 mg PO Q6H PRN Albuterol/Ipratropium [Combivent Respimat] Med 04/05/21 12:57 Ordered 1 gm INH Q4H PRN Benzonatate [Tessalon Perles] Med 04/05/21 12:57 Ordered 100 mg PO Q6H PRN Dextrose 50% in Water Med 04/05/21 04:24 Active 50 ml IVPUSH ASDIRECTED PRN Enoxaparin [Lovenox] Med 04/05/21 13:00 Ordered 40 mg SUBCUT Q24H Glucagon,Human Recombinant [GlucaGen] Med 04/05/21 04:24 Active 1 mg IM ASDIRECTED PRN Insulin Aspart [NovoLOG] Med 04/05/21 07:30 Active See Protocol SUBCUT TIDAC Levothyroxine Med 04/05/21 13:00 Ordered 125 mcg PO DAILY Remdesivir 100 mg Med 04/06/21 01:00 Ordered Sodium Chloride 0.9% [Normal Saline AdvBag] 100 ml IV Q24H Sodium Chloride 0.9% [Saline Flush] Med 04/04/21 21:39 Active 10 ml FLUSH ASDIRECTED PRN Sodium Chloride 0.9% [Saline Flush] Med 04/04/21 21:39 Active 2.5 ml FLUSH ASDIRECTED PRN dexAMETHasone Med 04/06/21 01:00 Ordered 6 mg PO Q24H lisinopriL [Prinivil] Med 04/06/21 09:00 Ordered 5 mg PO DAILY Saline Lock Insert [OM.PC] Stat Oth 04/04/21 21:39 Ordered Sequential Compression Device [OM.PC] Per Unit Routine Oth 04/05/21 12:56 Ordered Resuscitation Status Routine Resus Stat 04/05/21 12:56 Ordered Medication Orders Acetaminophen (Acetaminophen 325 Mg Tab) 650 mg PO Q6H PRN PRN Reason: Pain Albuterol/Ipratropium (Albuterol/Ipratropium 4 Gm Inhalation [place]) 1 gm INH Q4H PRN PRN Reason: Dyspnea Benzonatate (Benzonatate 100 Mg Cap) 100 mg PO Q6H PRN PRN Reason: Cough Dexamethasone (Dexamethasone 4 Mg Tab) 6 mg PO Q24H TIM Dextrose/Water (50% Dextrose In Water 50 Ml Syringe) 50 ml IVPUSH ASDIRECTED PRN PRN Reason: Hypoglycemia Enoxaparin Sodium (Enoxaparin 40 Mg/0.4 Ml Syringe) 40 mg SUBCUT Q24H TIM Glucagon (Glucagon,Human Recombinant 1 Mg Vial) 1 mg IM ASDIRECTED PRN PRN Reason: Hypoglycemia Remdesivir 100 mg/ Sodium (Chloride) 100 mls @ 100 mls/hr IV Q24H [facility] Stop: 04/09/21 01:59 Insulin Aspart (Insulin Aspart 100 Units/Ml 3 Ml Pen) 0 unit SUBCUT TIDAC [facility]; Protocol Last Admin: 04/05/21 11:35 Dose: 3 units Documented by: Admin: 04/05/21 08:08 Dose: 4 units Documented by: SOFIA Levothyroxine Sodium (Levothyroxine 125 Mcg Tab) 125 mcg PO ACBREAKFAST [facility] Lisinopril (Lisinopril 5 Mg Tab) 5 mg PO DAILY [facility] Sodium Chloride (Sodium Chloride 0.9% 10 Ml Syringe) 10 ml FLUSH ASDIRECTED PRN PRN Reason: Keep Vein Open Last Admin: 04/04/21 22:08 Dose: 10 ml Documented by: LUCÍA Sodium Chloride (Sodium Chloride 0.9% 2.5 Ml Syringe) 2.5 ml FLUSH ASDIRECTED PRN PRN Reason: Keep Vein Open Last Admin: 04/04/21 22:08 Dose: 2.5 ml Documented by: LUCÍA Assessment/Plan Comment:: 71 yo female admitted with COVID with hypoxia Treating with dexamethasone and remdesivir DM: on ssi and diabetic diet. Lovenox for DVT prophylaxis.
[2021-04-05] MEDS: Albuterol/Ipratropium 4 GM Inhalation Spray INH PRN ×2 (13:51→20:43)
[2021-04-05] MEDS: Enoxaparin 40 MG/0.4 ML Syringe SUBCUT SCH (13:51)
[2021-04-05] MEDS: Levothyroxine 125 MCG Tab PO SCH (13:51)
[2021-04-05] MEDS: Benzonatate 100 MG Cap PO PRN ×2 (13:51→20:43)
[2021-04-06] MEDS ORDERED: Dexamethasone 4 MG Tab PO SCH (01:00)
[2021-04-06] MEDS ORDERED: REMDESIVIR 100 MG in Sodium Chloride 0.9% 100 ML IV SCH (01:00)
[2021-04-06] MEDS: Benzonatate 100 MG Cap PO PRN ×2 (01:39→08:07)
[2021-04-06] MEDS: Levothyroxine 125 MCG Tab PO SCH (08:07)
[2021-04-06] MEDS: Insulin Aspart 100 Units/ML 3 ML Pen SUBCUT SCH ×2 (08:08→12:03)
[2021-04-06] MEDS: Albuterol/Ipratropium 4 GM Inhalation Spray INH PRN (08:08)
[2021-04-06] MEDS ORDERED: Lisinopril 5 MG Tab PO SCH (09:00)
[2021-04-06 10:08] LABS: POTASSIUM,K 4.2 mmol/L (3.5-5.1)
[2021-04-06 11:44] VITALS: BP 146/69; PULSE 78
[2021-04-06] MEDS: Enoxaparin 40 MG/0.4 ML Syringe SUBCUT SCH (12:04)
--- NOTE | 2021-04-06 13:38 | PCM.DCSUM1 ---
Discharge Summary - Discharge Data Discharge Date: 04/06/21 Discharge Disposition: Home, Self-Care 01 Condition: Good - Referral to Home Health Primary Care Physician: PCP None - Discharge Diagnosis/Problem(s) (1) COVID-19 SNOMED Code(s): 052711839 ICD Code: U07.1 - COVID-19 Status: Acute Current Visit: Yes - Patient Summary/Data Hospital Course: 71 yo female who presents to the ED with ten day history of cough, and shortness of breath. Patient tested positive for COVID on Wednesday. She received monoclonal antibodies the day of admission. LAter that night she became increasingly short of breath and was seen in the ED. She was noted to be sating 80% on room air after her CT scan was performed. Her CT scan was negative for PE but did show ground glass opacities. She was treated with remdesivir and dexamethasone and admitted to the hospital. She was monitored for another night and has been weened of supplemental oxygen. She is discharged home to have follow up with her primary care provider. - Patient Instructions Diet: Regular Diet as Tolerated Activity: As Tolerated Notify Provider of: Fever, Increased Pain, Nausea and/or Vomiting - Discharge Plan *PRESCRIPTION DRUG MONITORING PROGRAM REVIEWED*: Not Applicable *COPY OF PRESCRIPTION DRUG MONITORING REPORT IN PATIENT FTAOUMATA: Not Applicable Home Medications: Home Meds Calcium Carbonate/Vitamin D3 [Calcium 600 + Vit D 400] 1 tab PO DAILY 05/24/14 [History] Cinnamon Bark [Cinnamon] 2 tab PO DAILY 05/24/14 [History] Levothyroxine Sodium [Synthroid] 125 mcg PO DAILY 05/24/14 [History] metFORMIN HCl [Metformin HCl ER] 4 tab PO ACDINNER 05/24/14 [History] lisinopriL [Lisinopril] 5 mg PO DAILY 06/17/20 [History] Patient Handouts: How to Protect Yourself and Others - [facility] (12/06/2020), 10 Things You Can Do to Manage Your COVID-19 Symptoms at Home - [facility] (11/08/2020), Frequently Asked Questions About COVID-19 Vaccination - [facility] (12/27/2020), COVID- 19: Quarantine vs. Isolation - [facility] (04/11/2020) Referrals: PCP,None [Primary Care Provider] - - Discharge Summary/Plan Comment DC Time >30 min.: No Total # of Minutes for Discharge Time: 15 - Patient Data Vitals - Most Recent: Last Vital Signs Temp 35.6 C L 04/06/21 11:42 Pulse 78 04/06/21 11:42 Resp 18 04/06/21 11:42 BP 146/69 H 04/06/21 11:42 Pulse Ox 96 04/06/21 11:42 Weight - Most Recent: 76.158 kg I&O - Last 24 hours: Intake & Output 04/05/21 04/06/21 04/06/21 22:59 06:59 14:59 Intake Total 1000 800 Output Total 850 600 Balance 150 200 Lab Results - Last 24 hrs: Laboratory Results - last 24 hr 04/05/21 04/06/21 04/06/21 Range/Units 17:01 06:20 09:34 WBC 4.76 (4.0-11.0) K/uL RBC 4.62 (4.30-5.90) M/uL Hgb 13.4 (12.0-16.0) g/dL Hct 39.4 (36.0-46.0) % MCV 85.3 (80.0-98.0) fL MCH 29.0 (27.0-32.0) pg MCHC 34.0 (31.0-37.0) g/dL RDW Std Deviation 41.7 (28.0-62.0) fl RDW Coeff of [place] 13 (11.0-15.0) % Plt Count 261 (150-400) K/uL MPV 9.30 (7.40-12.00) fL Neut % (Auto) 77.7 (48.0-80.0) % Lymph % (Auto) 16.8 (16.0-40.0) % [place] % (Auto) 5.5 (0.0-15.0) % Eos % (Auto) 0.0 (0.0-7.0) % Baso % (Auto) 0.0 (0.0-1.5) % Neut # (Auto) 3.7 (1.4-5.7) K/uL Lymph # (Auto) 0.8 (0.6-2.4) K/uL [place] # (Auto) 0.3 (0.0-0.8) K/uL Eos # (Auto) 0.0 (0.0-0.7) K/uL Baso # (Auto) 0.0 (0.0-0.1) K/uL Nucleated RBC % 0.0 /100WBC Nucleated RBCs # 0 K/uL Sodium (136-145) mmol/L Potassium (3.5-5.1) mmol/L Chloride (98-107) mmol/L Carbon Dioxide (21.0-32.0) mmol/L BUN (7.0-18.0) mg/dL Creatinine (0.6-1.0) mg/dL Est Cr Clr Drug Dosing mL/min Estimated GFR (MDRD) ml/min Glucose (74-106) mg/dL POC Glucose 214 H 246 H (70-99) mg/dL Calcium (8.5-10.1) mg/dL Total Bilirubin (0.2-1.0) mg/dL AST (15-37) IU/L ALT (14-63) IU/L Alkaline Phosphatase (46-116) U/L Total Protein (6.4-8.2) g/dL Albumin (3.4-5.0) g/dL Globulin (2.6-4.0) g/dL Albumin/Globulin Ratio (0.9-1.6) 04/06/21 04/06/21 Range/Units 09:34 11:41 WBC (4.0-11.0) K/uL RBC (4.30-5.90) M/uL Hgb (12.0-16.0) g/dL Hct (36.0-46.0) % MCV (80.0-98.0) fL MCH (27.0-32.0) pg MCHC (31.0-37.0) g/dL RDW Std Deviation (28.0-62.0) fl RDW Coeff of [place] (11.0-15.0) % Plt Count (150-400) K/uL MPV (7.40-12.00) fL Neut % (Auto) (48.0-80.0) % Lymph % (Auto) (16.0-40.0) % [place] % (Auto) (0.0-15.0) % Eos % (Auto) (0.0-7.0) % Baso % (Auto) (0.0-1.5) % Neut # (Auto) (1.4-5.7) K/uL Lymph # (Auto) (0.6-2.4) K/uL [place] # (Auto) (0.0-0.8) K/uL Eos # (Auto) (0.0-0.7) K/uL Baso # (Auto) (0.0-0.1) K/uL Nucleated RBC % /100WBC Nucleated RBCs # K/uL Sodium 135 L (136-145) mmol/L Potassium 4.2 (3.5-5.1) mmol/L Chloride 96 L (98-107) mmol/L Carbon Dioxide 28.0 (21.0-32.0) mmol/L BUN 18 (7.0-18.0) mg/dL Creatinine 1.0 (0.6-1.0) mg/dL Est Cr Clr Drug Dosing 50.90 mL/min Estimated GFR (MDRD) 54.8 ml/min Glucose 334 H (74-106) mg/dL POC Glucose 308 H (70-99) mg/dL Calcium 8.6 (8.5-10.1) mg/dL Total Bilirubin 0.4 (0.2-1.0) mg/dL AST 37 (15-37) IU/L ALT 38 (14-63) IU/L Alkaline Phosphatase 76 (46-116) U/L Total Protein 6.9 (6.4-8.2) g/dL Albumin 3.3 L (3.4-5.0) g/dL Globulin 3.6 (2.6-4.0) g/dL Albumin/Globulin Ratio 0.9 (0.9-1.6) Med Orders - Current: Current Medications Acetaminophen (Acetaminophen 325 Mg Tab) 650 mg PO Q6H PRN PRN Reason: Pain Last Admin: 04/06/21 01:39 Dose: 650 mg Documented by: Albuterol/Ipratropium (Albuterol/Ipratropium 4 Gm Inhalation [place]) 0 gm INH Q4H PRN PRN Reason: Dyspnea Last Admin: 04/06/21 08:08 Dose: 1 puff Documented by: Benzonatate (Benzonatate 100 Mg Cap) 100 mg PO Q6H PRN PRN Reason: Cough Last Admin: 04/06/21 08:07 Dose: 100 mg Documented by: Dexamethasone (Dexamethasone 4 Mg Tab) 6 mg PO Q24H [facility] Last Admin: 04/06/21 01:38 Dose: 6 mg Documented by: Dextrose/Water (50% Dextrose In Water 50 Ml Syringe) 50 ml IVPUSH ASDIRECTED PRN PRN Reason: Hypoglycemia Enoxaparin Sodium (Enoxaparin 40 Mg/0.4 Ml Syringe) 40 mg SUBCUT Q24H [facility] Last Admin: 04/06/21 12:04 Dose: 40 mg Documented by: Glucagon (Glucagon,Human Recombinant 1 Mg Vial) 1 mg IM ASDIRECTED PRN PRN Reason: Hypoglycemia Remdesivir 100 mg/ Sodium (Chloride) 100 mls @ 100 mls/hr IV Q24H [facility] Stop: 04/09/21 01:59 Last Admin: 04/06/21 02:00 Dose: 100 mls/hr Documented by: Insulin Aspart (Insulin Aspart 100 Units/Ml 3 Ml Pen) 0 unit SUBCUT TIDAC [facility]; Protocol Last Admin: 04/06/21 12:03 Dose: 4 units Documented by: Levothyroxine Sodium (Levothyroxine 125 Mcg Tab) 125 mcg PO ACBREAKFAST [facility] Last Admin: 04/06/21 08:07 Dose: 125 mcg Documented by: Lisinopril (Lisinopril 5 Mg Tab) 5 mg PO DAILY [facility] Last Admin: 04/06/21 08:07 Dose: 5 mg Documented by: Sodium Chloride (Sodium Chloride 0.9% 10 Ml Syringe) 10 ml FLUSH ASDIRECTED PRN PRN Reason: Keep Vein Open Last Admin: 04/04/21 22:08 Dose: 10 ml Documented by: Sodium Chloride (Sodium Chloride 0.9% 2.5 Ml Syringe) 2.5 ml FLUSH ASDIRECTED PRN PRN Reason: Keep Vein Open Last Admin: 04/04/21 22:08 Dose: 2.5 ml Documented by: Discontinued Medications Acetaminophen (Acetaminophen 325 Mg Tab) 650 mg PO NOW ONE Stop: 04/04/21 21:57 Last Admin: 04/04/21 22:07 Dose: 650 mg Documented by: Dexamethasone (Dexamethasone 10 Mg/Ml Sdv) 10 mg IVPUSH ONETIME ONE Stop: 04/05/21 00:42 Last Admin: 04/05/21 01:02 Dose: 10 mg Documented by: Sodium Chloride (Normal Saline) 1,000 mls @ 1,000 mls/hr IV .Bolus ONE Stop: 04/04/21 22:55 Last Admin: 04/04/21 22:08 Dose: 1,000 mls/hr Documented by: Remdesivir 200 mg/ Sodium (Chloride) 250 mls @ 250 mls/hr IV ONETIME ONE Stop: 04/05/21 00:42 Last Admin: 04/05/21 01:23 Dose: 250 mls/hr Documented by: Iopamidol (Iopamidol 755 Mg/Ml 500 Ml Multipack Bottle) 100 ml IVPUSH ONETIME ONE Stop: 04/04/21 23:08 Last Admin: 04/04/21 23:41 Dose: 100 ml Documented by:
== END 2021-04-06 14:55 | disposition home or self-care (01) | DRG 179 ==
LOC: MW.ED 21:25 → MW.MS 04-05 00:42
PROVIDERS: ADMIT Internal Medicine; ATTEND Internal Medicine
PROC: XW033E5 Introduction of Remdesivir Anti-infective into Peripheral Vein, Percutaneous Approach, New Technology Group 5 (ICD-10-PCS; principal; 2021-04-05)
PROC: 3E0333Z Introduction of Anti-inflammatory into Peripheral Vein, Percutaneous Approach (ICD-10-PCS; 2021-04-05)
PROC: 3E0DX3Z Introduction of Anti-inflammatory into Mouth and Pharynx, External Approach (ICD-10-PCS; 2021-04-06)
DX: U07.1 COVID-19 (principal); R09.02 Hypoxemia; R00.0 Tachycardia, unspecified; H91.93 Unspecified hearing loss, bilateral; H91.90 Unspecified hearing loss, unspecified ear; E78.00 Pure hypercholesterolemia, unspecified; E11.9 Type 2 diabetes mellitus without complications; E03.9 Hypothyroidism, unspecified; M85.80 Other specified disorders of bone density and structure, unspecified site; Z90.89 Acquired absence of other organs; Z90.49 Acquired absence of other specified parts of digestive tract; Z79.890 Hormone replacement therapy; Z79.899 Other long term (current) drug therapy; Z79.84 Long term (current) use of oral hypoglycemic drugs; Z97.4 Presence of external hearing-aid; Z86.010 Personal history of colon polyps
CPT/HCPCS: 36415; 71045; 71275; 80053; 85025; 93005; A9270; J7030; Q9967; 82947; 99285-25; J1100; J1650; J1815-GY; J7050; J8540; U0002